=== PATIENT | male | born 1950 | race Caucasian/White ===

== ENCOUNTER 2017-09-20 13:33 | Inpatient (IN) | payer OTHER ==
[~2017-09-20] VITALS: Ht 186.7 cm; Wt 104.0 kg
[2017-09-20 14:00] VITALS: BP 168/80
[2017-09-20] MEDS ORDERED: DIPH25CA PO (14:55)
[2017-09-20] MEDS ORDERED: HEPA50VL IM (14:55)
[2017-09-20] MEDS ORDERED: ASPI81CH32 PO (14:55)
[2017-09-20] MEDS ORDERED: TYLE325C PO (14:55)
[2017-09-20] MEDS ORDERED: SENN8.6C PO (14:55)
[2017-09-20] MEDS ORDERED: KEPP1TAB PO (14:55)
[2017-09-20] MEDS ORDERED: OXYC-517 PO ×2 (14:55)
[2017-09-20] MEDS ORDERED: STOO100C PO (14:55)
[2017-09-20] MEDS ORDERED: REST0.05 OS (14:59)
[2017-09-20] MEDS: oxyCODONE 5MG TAB PO PRN ×2 (15:01→20:09)
[2017-09-20] MEDS: ACETAMINOPHEN TAB 650MG DOSE (2X325MG) PO PRN (15:01)
[2017-09-20] MEDS ORDERED: CALCIUM CARBONATE 500 MG CHEW U/D PO PRN (15:30)
--- NOTE | 2017-09-20 16:46 | PMRHPE ---
DATE OF ADMISSION: 09/20/2017 REASON FOR ADMISSION: Rehabilitation of intracerebral hemorrhage with subdural hematoma and subarachnoid hemorrhage with subdural hematoma on the left from dissection of the internal carotid artery from fall and subarachnoid hemorrhage and bifrontal, biparietal lobes from fall from 8-feet tall ladder with approximately 15 seconds of nonresponsiveness and then coming to oriented status. Patient was air lifted from the fall on 09/15/2017 to [facility], assessed, and found to have these bleeds. His main deficits, however, have remained balance and hearing, worse on the left than the right. Patient has been placed on Keppra for anti-seizure prophylaxis, 500 mg twice a day for a week. Patient was assessed in therapy and found to have been doing fairly well as far as strength goes but limited in activities of daily living (ADLs) and mobility because of the balance deficits from the bleeds here. PAST MEDICAL HISTORY: 1. Arthritis. 2. Idiopathic peripheral neuropathy, principally with bilateral foot numbness. PAST SURGICAL HISTORY: Includes: 1. Arthroscopy in 2000 to right shoulder for impingement. 2. Laparoscopic cholecystectomy in 1999. ALLERGIES: No known drug allergies. ADMISSION MEDICATIONS: - Tylenol 650 mg every 6 hours as needed for pain or fever - aspirin 81 mg daily - calcium carbonate 1 gram every 4 hours as needed for heartburn - Benadryl 25 mg every 6 hours as needed for itching - Colace 100 mg by mouth twice a day for bowel program - heparin 5000 units subcutaneous every 12 hours for deep vein thrombosis (DVT) prophylaxis - Keppra 500 mg by mouth twice a day for seizure prophylaxis. Will extend this for 3 days. - oxycodone 5 mg every 4 hours as needed moderate to severe pain - Senokot two tablets by mouth at bedtime for bowel program FAMILY HISTORY: Negative for any related diseases. SOCIAL HISTORY: Patient is a lifelong nonsmoker and did not use smokeless tobacco. He does not drink or use illicit drugs. Lives with his in 2-level home with three steps into the home and 15 steps inside. He is retired and previously was independent in mobility, ADLs, driving, and had experienced two falls inside the last year. Besides his , who is a retired nurse, who is there all the time except for a medical appointment, he has two daughters who can also assist. His does have lupus. REVIEW OF SYSTEMS: Currently with frontal headache with very mild photophobia and some nausea, for which he has requested Tums. Otherwise no pain. Except for balance, decreased hearing, patient notes essentially negative 10-system review of systems. PHYSICAL EXAMINATION: GENERAL: Patient is a tall, somewhat overweight middle-aged white male who is alert, well oriented. Has fair hearing and clear speech. He is 6 feet 1-1/2 inches tall. Weighs 104 kg. VITAL SIGNS: Show temperature 97.6, blood pressure 168/80, pulse 49, respirations 18, and pulse oximetry 96% on room air. HEENT: Normocephalic, atraumatic. No tender points or significant ecchymosis found. Pupils are equal, round, and reactive to light and accommodation. Extraocular motions are intact. Face is symmetrical without droops. Tongue is midline. Nares are clear without any drainage. No inflammation seen in the oropharynx. Hearing is slightly decreased. NECK: Supple. LUNGS: Clear in all green[place] to auscultation. CORONARY: Shows bradycardic but regular rate and rhythm with normal S1, S2 without S3, S4 murmurs or rub. ABDOMEN: Obese and nontender but normal bowel sounds in all quadrants. Bilateral upper and lower extremities with full functional range of motion. Motor is 5-/5 in bilateral upper and lower extremities. Tone is within normal limits in bilateral upper and lower extremities. Patient is alert and oriented times four. Speech is clear, coherent, and appropriate. Memory appears to be intact. Light touch, though is decreased in the distal bilateral lower extremities in a stocking pattern, as is also vibration slightly decreased down there. Otherwise, intact from mid calf proximal and throughout the upper extremities. Balance was not tested at this time. Laboratory and diagnostic data have been forwarded from [facility]. Please see sent records for additional information. ASSESSMENT AND PLAN: 1. Rehabilitation of traumatic intracerebral hemorrhage affecting the left internal carotid with some dissection, causing left-sided subdural hematoma and bilateral frontal subarachnoid hemorrhages. Patient does not seem to show any significant impulsivity or significant change in personality at this time. Further questioning with as we continue to work with patient may be helpful in that. He does have some decrease in hearing, and so I will go ahead and add speech therapy to physical and occupational therapy to work on his balance, mobility, adaptive ADLs to prepare patient for returning home with his . 2. Deafness. As noted will have speech therapy do a more thorough assessment and work with patient on any communication strategies as needed. 3. Frontal headache. This may be related to the intracerebral hemorrhage or the stress of the day with the travel up here. We will continue to observe that. Clearly, vascular is an element in this gentleman's situation, and there was questionable aneurysm present on angiograms done at [facility]. We will try to obtain all appropriate records, including imaging studies, from t here. POST ADMISSION PHYSICIAN EVALUATION: I do feel patient is consistent with preadmission screening. In general, he has an unusual presentation for fall. It does appear, though, that he did sustain a concussion, causing a brief loss of consciousness and memory and confusional state that cleared quickly; however, the bojorquez element is the intracerebral bleeds and their effect on the 8th nerve for balance and hearing. I do feel patient is quite capable of participating and benefiting from 3 hours of therapy per day, and I do anticipate he should make significant progress in adaptive mobilities, ADLs to facilitate his transition from the inpatient rehabilitation to home with family, and that his progress is good and he has a good support system. My estimated length of stay is 14 days. Medicine consult has been sent. Time spent on chart review, history and physical, documentation is greater than 70 minutes. SARAH
--- NOTE | 2017-09-20 18:17 | CR.PDOC ---
[facility] Consultation Consultation DATE OF CONSULTATION: 09/20/2017 PRIMARY CARE PHYSICIAN: Dr. Duvall / Phani REFERRING PROVIDER: Dr. Robertson ATTENDING PHYSICIAN: Dr. Robertson REASON FOR CONSULTATION/CHIEF COMPLAINT: Medical management. HISTORY OF PRESENT ILLNESS: 66 yo male with previous fall from ladder while hanging ari lights. Resulted in Head Trauma and Subarachnoid hemorrhage. Seen in [place], followed by neurosurgery. Eventually was felt to be stable from Neurosurgical and Medical stand point and accepted at [facility] for further rehabilitation.. ALLERGIES: Please see below. HOME MEDICATIONS: Please see below. PAST MEDICAL HISTORY: 1. Status post intracerebral hemorrhage/subarachnoid bleed 2. Left ear hearing loss 3. Recurrent headaches since fall, likely related to postconcussive syndrome 4. Osteoarthritis. 5. Bilateral Lower extremity Idiopathic peripheral neuropathy with unknown etiology PAST SURGICAL HISTORY: 1. Laparoscopic cholecystectomy. 2. Right shoulder arthroscopic for nerve impingement FAMILY HISTORY: Noncontributory SOCIAL HISTORY: , lives at home with his . Denies tobacco use, alcohol use, no illicit drug use. Denies any recent travel, other than recent hospitalization for acute cranial hemorrhage REVIEW OF SYSTEMS: CONSTITUTIONAL: No fever, chills, weight loss, nausea or vomiting . HEENT: Occasional headache since his fall. He does attribute having left hearing loss. Denies lightheadedness, blurred or loss of vision. No difficulty with speech or swallow. CARDIOVASCULAR: No chest pain, palpitations, paroxysmal nocturnal dyspnea or lower extremity edema RESPIRATORY: No cough, productive sputum, wheeze or hemoptysis GENITOURINARY: No dysuria, frequency, or discharge MUSCULOSKELETAL: No bone, muscle or joint pain. GASTROINTESTINAL: No Nausea, vomiting, change in appetite. Bowel movements are regular without hematochezia or melena. No bladder or bowel incontinence. SKIN: No complaint of lesions, abrasions or rashes NEUROLOGICAL: Some slowed recall with certain objects and cognition. No blurred vision, paraesthesias or paralysis PSYCHIATRIC: No depression, anxiety, audiovisual hallucinations. No suicidal ideations. ENDOCRINE: Denies history of diabetes or thyroid disorder. No history of endocrine abnormalities. HEMATOLOGIC/ONCOLOGIC: no bleeding or bruising disorders. No history of VTE. LYMPHATIC: No lumps, bumps or swelling of neck, axilla or groin. No night sweats or weight loss. PHYSICAL EXAMINATION: VITAL SIGNS: Please see below. GENERAL: NAD, A&OX3, Pleasant HEENT: PERRLA, throat clear, neck supple, no JVD CARDIOVASCULAR: RRR RESPIRATORY: CTA Bilaterally ABDOMINAL: soft, NT/ND normoactive bowel sounds EXTREMITIES: no edema/no calf tenderness NEUROLOGICAL: CN'S II-XII grossly intact PSYCHOLOGICAL: negative LABORATORY DATA: Please see below. IMPRESSION: 66 yo male who unfortunately sustained a intracranial hemorrhage from a mechanical fall, but has shown significant improvement. Recently discharged by neurosurgical care for further rehabilitation. PROBLEM LIST: 1. Status post intracerebral hemorrhage/subarachnoid bleed 2. Left ear hearing loss 3. Recurrent headaches since fall, likely related to postconcussive syndrome 4. Osteoarthritis. 5. Bilateral Lower extremity Idiopathic peripheral neuropathy with unknown etiology RECOMMENDATION: He appears stable from a medical stand point. I agree with his medications as outlined and Keppra for seizure prophylaxis as outlined by neurosurgery. No further recommendations otherwise. DVT PROPHYLAXIS: SQ heparin should be fine. DISPOSITION: per ARU physician. Thank you for this consult. Hospitalist service will be available should any issues arise with this patient. Vital Signs/I&O Vital Signs Date Time Temp Pulse Resp B/P (MAP) Pulse Ox O2 Delivery O2 Flow Rate FiO2 09/20/17 15:31 18 Room Air 09/20/17 14:00 97.6 49 168/80 (109) 96 Allergies Coded Allergies: No Known Drug Allergy (Verified Allergy, Unknown, 09/20/17) Home Medications Scheduled (Aspirin 81 Low Dose) 81 Mg Chw, 81 MG PO DAILY, (Reported) STARTED AT [facility] (Restasis) 0.05 % Emu, 1 DROP OS BID, (Reported) Docusate Sodium (Stool Softener) 100 Mg Cap, 100 MG PO BID, (Reported) Heparin Sod (Porcine) (Heparin Sodium) 5,000 Unit/Ml Inj, 1 ML IM TID, (Reported ) STARTED AT [facility] Levetiracetam (Keppra) 500 Mg Tab, 500 MG PO BID, (Reported) STARTED AT [facility] - STOP ON 09/22/2017 Senna (Senna) 8.6 Mg Cap, 2 CAP PO QPM, (Reported) Scheduled PRN (Tylenol) 325 Mg Cap, 650 MG PO Q4H PRN for PAIN, (Reported) Diphenhydramine HCl (Diphenhydramine HCl) 25 Mg Cap, 25 MG PO QHS PRN for SLEEP, (Reported) Oxycodone HCl (Oxycodone HCl) 5 Mg Tab, 5 MG PO Q4H PRN for PAIN, (Reported) STARTED AT [facility] Oxycodone HCl (Oxycodone HCl) 5 Mg Tab, 10 MG PO Q6H PRN for PAIN, (Reported) STARTED AT [facility] BRAULIO GLASER DO Sep 20, 2017 18:17
[2017-09-20 20:00] VITALS: BP 150/81
[2017-09-20] MEDS: DOCUSATE SODIUM 100 MG CAP PO SCH (20:04)
[2017-09-20] MEDS: HEPARIN SOD (PORCINE) 5000 UNITS/ML VIAL SC SCH (20:04)
[2017-09-20] MEDS: levETIRAcetam 250MG TABLET (KEPPRA) PO SCH (20:06)
[2017-09-20] MEDS: SENNA 8.6 MG TAB (SENOKOT) PO SCH (20:07)
[2017-09-21] MEDS: ACETAMINOPHEN TAB 650MG DOSE (2X325MG) PO PRN ×3 (01:45→19:34)
[2017-09-21 06:00] VITALS: BP 154/81
[2017-09-21 07:56] LABS: BASO % 0.4 % (0.0-1.0); EOS # 0.2 10^3/uL (0.0-0.50); EOS % 2.1 % (0.0-3.0); IMMATURE GRANULOCYTE % 0.4 % (0-0); LYMPH # 1.6 10^3/uL (1.5-4.5); MEAN CORPUSCULAR HEMOGLOBIN 30.6 pg (27.0-33.0); MEAN CORPUSCULAR HGB CONC 36.1 g/dl (32.0-36.5); MEAN CORPUSCULAR VOLUME 84.8 fl (80.0-96.0); MONO # 0.5 10^3/uL (0.0-0.8); MONO % 5.9 % (0.0-5.0); NEUTROPHILS # 6.1 10^3/uL (1.8-7.7); NEUTROPHILS % 72.2 % (36.0-66.0); PLATELET COUNT, AUTOMATED 164 10^3/uL (150-450); RED CELL DISTRIBUTION WIDTH 13.4 % (11.5-14.5); WHITE BLOOD COUNT 8.5 10^3/uL (4.0-10.0)
[2017-09-21 08:48] LABS: ALBUMIN 3.7 GM/DL (3.2-5.2); ALBUMIN/GLOBULIN RATIO 1.06 (1.00-1.93); ALKALINE PHOSPHATASE 68 U/L (45-117); ALT/SGPT 68 U/L (12-78); ANION GAP 9 MEQ/L (8-16); AST/SGOT 32 U/L (7-37); BILIRUBIN,TOTAL 2.1 MG/DL (0.2-1.0); BLOOD UREA NITROGEN 18 MG/DL (7-18); CALCIUM LEVEL 8.7 MG/DL (8.8-10.2); CARBON DIOXIDE LEVEL 24 MEQ/L (21-32); CHLORIDE LEVEL 106 MEQ/L (98-107); CREATININE FOR GFR 1.09 MG/DL (0.70-1.30); GLOMERULAR FILTRATION RATE > 60.0 (>49); GLUCOSE, FASTING 154 MG/DL (80-110); POTASSIUM SERUM 3.5 MEQ/L (3.5-5.1); SODIUM LEVEL 139 MEQ/L (136-145); TOTAL PROTEIN 7.2 GM/DL (6.4-8.2)
--- NOTE | 2017-09-21 08:49 | REP ---
CT Head without contrast HISTORY: Rule out bleed COMPARISON: None There is no intraparenchymal hemorrhage, acute infarct, mass or midline shift. The ventricular system is normal in appearance. Slight increased density is present in the region of the [place] . This may represent a small amount of subarachnoid hemorrhage versus down ossification of the [place]. There is no extra cerebral collection. There is no fracture. Minimal mucosal thickening is present in the left sphenoid sinus. IMPRESSION: There is slight increased density superior to the [place] This may represent non ossification of the [place] or a small amount of subarachnoid hemorrhage. MRA of the brain may be helpful for further evaluation. Results were discussed with Tawny in PM and R at 08:40 a.m. this date. Signed by Alejandro Nation MD 09/21/2017 08:40 A
[2017-09-21] MEDS: HEPARIN SOD (PORCINE) 5000 UNITS/ML VIAL SC SCH ×2 (09:00→21:00)
[2017-09-21] MEDS: ASPIRIN 81 MG CHEW TABLET PO SCH (09:00)
[2017-09-21] MEDS: levETIRAcetam 250MG TABLET (KEPPRA) PO SCH ×2 (11:35→19:33)
[2017-09-21] MEDS: DOCUSATE SODIUM 100 MG CAP PO SCH ×2 (11:35→19:33)
--- NOTE | 2017-09-21 12:56 | REP ---
MRA BRAIN WITHOUT CONTRAST: HISTORY: Rule out bleed. A small aneurysm is present arising from the cavernous left internal carotid artery. The aneurysm measures 2 x 2 mm. The aneurysm projects lateral from the cavernous left internal carotid artery. A small aneurysm is present arising from the cavernous and supraclinoid left internal carotid artery. The aneurysm measures 7 x 9 mm. The aneurysm projections posterior from the cavernous left internal carotid artery. There is no other aneurysm or arteriovenous malformation. There are no atherosclerotic lesions. The A1 segment of the right anterior cerebral artery is hypoplastic. There is origin of the right posterior cerebral artery. Major intracranial vessels are patent. The right vertebral artery is dominant. Impression: 1. 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 2. 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 Signed by Alejandro Nation MD 09/21/2017 01:12 P
--- NOTE | 2017-09-21 13:01 | IPNPDOC ---
Date Seen The patient was seen on 09/21/17. Progress Note SUBJECTIVE: Patient is a 66 yo male, seen at bedside this morning. Maybe some increased confusion related to me by the . Denies: h/a, f/c/r, n/v/d, CP, sob, cough or weakness. PHYSICAL EXAMINATION: VITAL SIGNS: Please see below. GENERAL: NAD, A&OX3, mild confusion compared to last night but pleasant HEENT: PERRLA, throat clear, neck supple, no JVD CARDIOVASCULAR: RRR RESPIRATORY: CTA Bilaterally ABDOMINAL: soft, NT/ND normoactive bowel sounds EXTREMITIES: no edema/no calf tenderness NEUROLOGICAL: CN'S II-XII grossly intact PSYCHOLOGICAL: negative LABORATORY DATA: Please see below. CT of head: pending. IMPRESSION: 66 yo male who unfortunately sustained a intracranial hemorrhage from a mechanical fall, but has shown significant improvement. Recently discharged by neurosurgical care for further rehabilitation. PROBLEM LIST: 1. Mild change in confusion. 2. Status post intracerebral hemorrhage/subarachnoid bleed 3. Left ear hearing loss 4. Recurrent headaches since fall, likely related to postconcussive syndrome 5. Osteoarthritis. 6. Bilateral Lower extremity Idiopathic peripheral neuropathy with unknown etiology RECOMMENDATION: Will plan on CT head. Hold PT for now. Will sign out to Dr. Fung to follow as consult and result of Head CT and any further w/u if needed. DVT PROPHYLAXIS: SQ heparin should be fine. DISPOSITION: per ARU physician. VS, I&O, 24H, Fishbone Vital Signs/I&O Vital Signs Date Time Temp Pulse Resp B/P (MAP) Pulse Ox O2 Delivery O2 Flow Rate FiO2 09/21/17 06:00 97.5 51 18 154/81 (105) 95 09/21/17 00:45 Room Air Laboratory Data 24H LABS Laboratory Tests 2 09/21/17 07:39: Bedside Glucose (Misc Panel) 170H 09/21/17 07:42: Immature Granulocyte % (Auto) 0.4H, White Blood Count 8.5, Red Blood Count 5.06 , Hemoglobin 15.5, Hematocrit 42.9, Mean Corpuscular Volume 84.8, Mean Corpuscular Hemoglobin 30.6, Mean Corpuscular Hemoglobin Concent 36.1, Red Cell Distribution Width 13.4, Platelet Count 164, Neutrophils (%) (Auto) 72.2H, Lymphocytes (%) (Auto) 19.0L, Monocytes (%) (Auto) 5.9H, Eosinophils (%) (Auto) 2.1, Basophils (%) (Auto) 0.4, Neutrophils # (Auto) 6.1, Lymphocytes # (Auto) 1.6, Monocytes # (Auto) 0.5, Eosinophils # (Auto) 0.2, Basophils # (Auto) 0.0, Immature Granulocyte # (Auto) 0.0, Nucleated Red Blood Cells % (auto) 0.0, Anion Gap 9, Glomerular Filtration Rate > 60.0, Blood Urea Nitrogen 18, Creatinine 1.09, Sodium Level 139, Potassium Level 3.5, Chloride Level 106, Carbon Dioxide Level 24, Calcium Level 8.7L, Aspartate Amino Transf (AST/SGOT) 32, Alanine Aminotransferase (ALT/SGPT) 68, Alkaline Phosphatase 68, Total Bilirubin 2.1H, Total Protein 7.2, Albumin 3.7, Albumin/Globulin Ratio 1.06 CBC/BMP Laboratory Tests 09/21/17 07:42 Red Blood Count 5.06, Mean Corpuscular Volume 84.8, Mean Corpuscular Hemoglobin 30.6, Mean Corpuscular Hemoglobin Concent 36.1, Red Cell Distribution Width 13.4 , Neutrophils (%) (Auto) 72.2 H, Lymphocytes (%) (Auto) 19.0 L, Monocytes (%) ( Auto) 5.9 H, Eosinophils (%) (Auto) 2.1, Basophils (%) (Auto) 0.4, Neutrophils # (Auto) 6.1, Lymphocytes # (Auto) 1.6, Monocytes # (Auto) 0.5, Eosinophils # ( Auto) 0.2, Basophils # (Auto) 0.0, Calcium Level 8.7 L, Aspartate Amino Transf ( AST/SGOT) 32, Alanine Aminotransferase (ALT/SGPT) 68, Alkaline Phosphatase 68, Total Bilirubin 2.1 H, Total Protein 7.2, Albumin 3.7 BRAULIO GLASER DO Sep 21, 2017 13:01
[2017-09-21 13:38] VITALS: BP 162/82
--- NOTE | 2017-09-21 13:48 | REP ---
MR BRAIN WITHOUT CONTRAST: HISTORY: Rule out bleed. COMPARISON: CT 09/21/2017. Small hemorrhagic contusions are present in the temporal lobes and inferior left frontal lobe. A nonhemorrhagic contusion is present in the inferior right frontal lobe. Several punctate areas of increased signal intensity on T2-weighted images are present in the subcortical white matter. This represents small vessel ischemic disease. There is no infarct or midline shift. Small chronic subdural fluid collections are present over cerebral hemispheres. These measure 3 and 2 mm on the right and left respectively. A 7 mm aneurysm is present arising from the cavernous and supraclinoid left internal carotid artery. There is a possible small 3 mm aneurysm versus a small amount of subarachnoid hemorrhage in the anterior interhemispheric fissure involving a proximal branch of the anterior cerebral arteries. The mastoid air cells and right maxillary sinus. IMPRESSION: 1. There are small hemorrhagic contusions in the inferior left frontal lobe and bilateral temporal lobes. 2. There is a small amount of hemorrhagic contusion in the inferior right frontal lobe. 3. 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 4. There are small 3 and 2 mm chronic subdural fluid collections overlying the right and left cerebral hemispheres respectively. There is no midline shift. 5. There is a possible small 3 mm aneurysm versus_ subarachnoid hemorrhage in the anterior interhemispheric fissure. Signed by Alejandro Nation MD 09/21/2017 02:22 P
[2017-09-21] MEDS: SENNA 8.6 MG TAB (SENOKOT) PO SCH (19:33)
[2017-09-21 20:00] VITALS: BP 152/82
[2017-09-21] MEDS: oxyCODONE 5MG TAB PO PRN (22:34)
[2017-09-22] MEDS: ACETAMINOPHEN TAB 650MG DOSE (2X325MG) PO PRN ×4 (01:42→21:13)
[2017-09-22] MEDS: oxyCODONE 5MG TAB PO PRN ×4 (02:57→20:07)
[2017-09-22 06:30] VITALS: BP 159/81
[2017-09-22] MEDS: ASPIRIN 81 MG CHEW TABLET PO SCH (08:52)
[2017-09-22] MEDS: DOCUSATE SODIUM 100 MG CAP PO SCH ×2 (08:52→20:06)
[2017-09-22] MEDS: levETIRAcetam 250MG TABLET (KEPPRA) PO SCH ×2 (08:53→20:06)
[2017-09-22] MEDS: HEPARIN SOD (PORCINE) 5000 UNITS/ML VIAL SC SCH ×2 (08:53→20:06)
[2017-09-22 14:00] VITALS: BP 158/85
[2017-09-22] MEDS ORDERED: amLODIPine 5 MG TAB PO ONE (15:00)
[2017-09-22 20:00] VITALS: BP 137/81
[2017-09-22] MEDS: SENNA 8.6 MG TAB (SENOKOT) PO SCH (20:06)
[2017-09-23] MEDS: oxyCODONE 5MG TAB PO PRN ×3 (00:07→19:41)
[2017-09-23] MEDS: ACETAMINOPHEN TAB 650MG DOSE (2X325MG) PO PRN ×3 (04:12→21:00)
[2017-09-23 06:00] VITALS: BP 135/76
[2017-09-23] MEDS: ASPIRIN 81 MG CHEW TABLET PO SCH (08:37)
[2017-09-23] MEDS: levETIRAcetam 250MG TABLET (KEPPRA) PO SCH (08:37)
[2017-09-23] MEDS: DOCUSATE SODIUM 100 MG CAP PO SCH ×2 (08:38→20:59)
[2017-09-23] MEDS: HEPARIN SOD (PORCINE) 5000 UNITS/ML VIAL SC SCH ×2 (08:38→21:00)
[2017-09-23] MEDS: amLODIPine 5 MG TAB PO SCH (08:38)
[2017-09-23 14:00] VITALS: BP 135/78
[2017-09-23 20:00] VITALS: BP 135/67
[2017-09-23] MEDS: diphenhydrAMINE 25 MG CAP PO PRN (20:59)
[2017-09-23] MEDS: SENNA 8.6 MG TAB (SENOKOT) PO SCH (20:59)
[2017-09-24] MEDS: oxyCODONE 5MG TAB PO PRN ×3 (03:39→21:33)
[2017-09-24] MEDS: ACETAMINOPHEN TAB 650MG DOSE (2X325MG) PO PRN ×3 (03:40→21:32)
[2017-09-24 06:00] VITALS: BP 139/84
[2017-09-24] MEDS: DOCUSATE SODIUM 100 MG CAP PO SCH ×2 (08:49→21:34)
[2017-09-24] MEDS: amLODIPine 5 MG TAB PO SCH (08:49)
[2017-09-24] MEDS: ASPIRIN 81 MG CHEW TABLET PO SCH (08:49)
[2017-09-24] MEDS: HEPARIN SOD (PORCINE) 5000 UNITS/ML VIAL SC SCH (08:49)
[2017-09-24] MEDS: ANALGESIC BALM CRM 120 GM TOP SCH ×3 (13:30→21:36)
[2017-09-24 14:30] VITALS: BP 147/85
--- NOTE | 2017-09-24 17:45 | IPNPDOC ---
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 Patient was air lifted from the fall on 09/15/2017 to [facility], assessed, and found to have these bleeds. His main deficits, however, have remained balance and hearing, worse on the left than the right. Patient was assessed in therapy and found to have been doing fairly well as far as strength goes but limited in activities of daily living (ADLs) and mobility because of the balance deficits from the bleeds here. Patient has completed his course of Keppra with no seizures noted. He did have some decrease in attention concentration on 09/21/17 in the morning which led to the CT and MRI exams that day. Patient then showed clearing from the confusion and lethargy that his had noted that morning. Patient notes having frontal headache otherwise significant complaints today. ALLERGIES: See Below MEDICATIONS: Reviewed, see below. OBJECTIVE: VITAL SIGNS: Please see below. PHYSICAL EXAMINATION: GENERAL: Tall somewhat over weight late middle-age white male who looks slightly younger than a 66 years of age. Patient is alert and well oriented with speech that is clear and appropriate. HEENT: Normocephalic/atraumatic with some tender points in the temporalis muscles bilaterally and in the frontalis on the left. CARDIOVASCULAR: Regular rate and rhythm with normal S1-S2 without S3-S4 murmurs or rubs. 2/4 bilateral radial pulses. LUNGS: All green[place] clear to auscultation. ABDOMEN: Benign with normal bowel sounds in all quadrants. NEUROLOGICAL: Patient is alert and oriented to person, place, time and situation. Affect is pleasant and cooperative which is a little bit of anxiousness. Good strength in bilateral upper and lower extremities. SKIN: Grossly intact. LABORATORY DATA: Reviewed. Please see below. MICROBIOLOGY: Please see below. IMAGING: EXAMINATION REQUESTED: CT Head without contrast REASON FOR PATIENT VISIT: SAH REASON FOR EXAM/COMMENT: Evaluate for bleed CT Head without contrast HISTORY: Rule out bleed COMPARISON: None There is no intraparenchymal hemorrhage, acute infarct, mass or midline shift. The ventricular system is normal in appearance. Slight increased density is present in the region of the [place] . This may represent a small amount of subarachnoid hemorrhage versus down ossification of the [place]. There is no extra cerebral collection. There is no fracture. Minimal mucosal thickening is present in the left sphenoid sinus. IMPRESSION: There is slight increased density superior to the [place] This may represent non ossification of the [place] or a small amount of subarachnoid hemorrhage. MRA of the brain may be helpful for further evaluation. Results were discussed with Tawny in PM and R at 08:40 a.m. this date. Signed by Kimberly Nation MD 09/21/2017 08:40 A DD: Kimberly Nation MD 09/21/17 0821 DT: Moriah 09/21/17 0840 DS: SARANYA 09/21/17 0840 09/21/17 0840 EXAMINATION REQUESTED: MRA BRAIN W/O CONTRAST REASON FOR PATIENT VISIT: SAH REASON FOR EXAM/COMMENT: elavuate for bleed MRA BRAIN WITHOUT CONTRAST: HISTORY: Rule out bleed. A small aneurysm is present arising from the cavernous left internal carotid artery. The aneurysm measures 2 x 2 mm. The aneurysm projects lateral from the cavernous left internal carotid artery. A small aneurysm is present arising from the cavernous and supraclinoid left internal carotid artery. The aneurysm measures 7 x 9 mm. The aneurysm projections posterior from the cavernous left internal carotid artery. There is no other aneurysm or arteriovenous malformation. There are no atherosclerotic lesions. The A1 segment of the right anterior cerebral artery is hypoplastic. There is origin of the right posterior cerebral artery. Major intracranial vessels are patent. The right vertebral artery is dominant. Impression: 1. 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 2. 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 Signed by Kimberly Nation MD 09/21/2017 01:12 P DD: Kimberly Nation MD 09/21/17 1232 DT: ADELINA 09/21/17 1256 DS: SARANYA 09/21/17 1312 09/21/17 1312 EXAMINATION REQUESTED: MRI-Brain without Contrast REASON FOR PATIENT VISIT: SAH REASON FOR EXAM/COMMENT: Evaluate for new bleed MR BRAIN WITHOUT CONTRAST: HISTORY: Rule out bleed. COMPARISON: CT 09/21/2017. Small hemorrhagic contusions are present in the temporal lobes and inferior left frontal lobe. A nonhemorrhagic contusion is present in the inferior right frontal lobe. Several punctate areas of increased signal intensity on T2-weighted images are present in the subcortical white matter. This represents small vessel ischemic disease. There is no infarct or midline shift. Small chronic subdural fluid collections are present over cerebral hemispheres. These measure 3 and 2 mm on the right and left respectively. A 7 mm aneurysm is present arising from the cavernous and supraclinoid left internal carotid artery. There is a possible small 3 mm aneurysm versus a small amount of subarachnoid hemorrhage in the anterior interhemispheric fissure involving a proximal branch of the anterior cerebral arteries. The mastoid air cells and right maxillary sinus. IMPRESSION: 1. There are small hemorrhagic contusions in the inferior left frontal lobe and bilateral temporal lobes. 2. There is a small amount of hemorrhagic contusion in the inferior right frontal lobe. 3. 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 4. There are small 3 and 2 mm chronic subdural fluid collections overlying the right and left cerebral hemispheres respectively. There is no midline shift. 5. There is a possible small 3 mm aneurysm versus_ subarachnoid hemorrhage in the anterior interhemispheric fissure. Signed by Kimberly Nation MD 09/21/2017 02:22 P DD: Kimberly Nation MD 09/21/17 1243 DT: SHENG 09/21/17 1347 DS: SARANYA 09/21/17 1422 09/21/17 1422 DVT prophylaxis ordered?: Aspirin. In light of the amount of walking patient is currently able to do and the nature of his multiple intercerebral hemorrhages, I will discontinue the heparin 5000 units subcutaneous every 12 hours. ASSESSMENT AND PLAN: 1. Rehabilitation of intercerebral hemorrhage with bilateral inferior frontal lobe contusions and bilateral temporal lobe contusions and left internal carotid artery aneurysm: Patient is doing exceptionally well in physical therapy , occupational therapy and has been evaluated by speech-language pathology. His strength and endurance are good but the bojorquez thing at this time is balance and coordination that limit him from being able be independent at home. Patient to be reviewed in team rounds today. 2. Deafness: Patient seems to be adapting adjusting fairly well to this. At discharge he will follow-up with ENT and should be directed to audiology. 3. Elevated fasting blood sugar this morning: Patient with blood sugar of 154 this morning but no diabetes history. I will have patient recheck with some fingerstick glucose measurements and check a hemoglobin A1c. REHAB. TEAM ROUNDS: Patient reviewed today in team rounds with is a co-therapy, occupational therapy, rehabilitation nursing, rehabilitation case management and physiatry. Overall patient is doing very well making rapid progress in learning adaptive mobility and ADLs in spite of his hearing and balance deficits. Anticipated date of discharge is 09/27/17. Please see initial assessments below. TIME SPENT: Chart Review, examination and documentation require greater than 25 minutes. Patient: Stef Mora : 1950 Age/Sex: 66/M Unit#: [id number] Room/Bed: M4148/01 User: Lorie Henriquez OT OT Date: 09/22/17 10:37 Type: OT Evaluation Time In * 06:50 Time Out * 07:50 OT Treatment Time-Minutes * 60 mins Type of Therapy Provided * Individual Unit * Acute Inpatient Rehab Occupational Therapy Evaluation * Initial Diagnosis * L ICA dissection, SDH/SAH Doctor's Order * Evaluation & Treatment Doctor's Order Details * Eval and treat 1.5 hours per day. 5 days per week. History of Present Illness * Pt reports he was assisting his grandson putting up ari lights on his house, and fell off a ladder. Pt reports he has no memory of the accident, but was taken to [facility] for further evaluation. Pt found to have L ICA dissection, SDH/SAH. Pt [facility] to [facility] 09/20/17. Precautions * Fall Subjective * Pt supine upon OT arrival, agreeable to evaluation. Prior to admission Pt was Independent ADL's * Yes Prior to Admission Other Assist Pt Required * Pt reports he was independent with all ADL/IADL at baseline, using no AD. Pain: Start of Session * 5 Pain: During Session * 5 Pain Assessment Label * Anterior Head * Pain Note Pt c/o headache that has been ongoing since admission. Pt did receive medication during tx from RN. Upper Extremity Dominance * Right Range of Motion Assessment Label * Bilateral Shoulder Elbow Wrist Fingers * Active or Passive Active * ROM Within Normal Limits Within Normal Limits Muscle Tone Assessment Label * Bilateral Shoulder Elbow Wrist Fingers * Upper Extremity Status Tone/Synergy Within Normal Limits Strength Assessment Label * Bilateral * Upper Extremity Strength Location Shoulder Elbow Wrist Air And Water Filler * Upper Extremity Status Strength 4+/5 Movement Assessment Label * Bilateral * Upper Extremity Status Gross Motor Within Normal Limits Upper Body Muscle Tone Label * Bilateral * Upper Extremity Status Fine Motor Within Normal Limits Sensation Assessment Label * Bilateral * Upper Extremity Status Sensation Within Normal Limits Edema Present * No Eating (Feeding) * Independent Grooming (Hygiene) * Standby Assist Bathing * Contact Guard Assist Dressing-Upper Body * Standby Assist Dressing-Lower Body * Contact Guard Assist Toileting * Contact Guard Assist Toilet/Commode Transfer * Contact Guard Assist Transfers * Contact Guard Assist Bed Mobility * Standby Assist Walk/Device * Contact Guard Assist ADL Status Note * Pt transferred supine to sit EOB with use of bedrail and SBA. Pt able to don B slippers while seated EOB, then completed sit<>stand with CGA to RW. Pt ambulated to bathroom and completed toilet transfer with CGA. Toileting with CGA in standing for clothing management. Pt transferred to sink and completed sponge bathing while seated on shower chair. Pt able to wash all parts, with SBA/CGA in standing to wash buttocks. UB dressing- set-up assist only. LB dressing- pt able to thread BLE into pants and socks, close SBA/CGA to stand to pull up. Pt completed grooming at sink with set-up assist only. Pt then ambulated back to chair at bedside, awaiting breakfast and ST. All needs met, call light in reach. Per ST, pt able to open all items on tray and feed self independently. A. Eating (include only those with PO intake): * 06.Independent Eating Comments: * See ADL note. B. Oral Hygiene (includes gums in edentulous pts): * 05.Setup/clean up Asst Oral Hygiene Comments: * See ADL note. C. Toileting Hygiene (not transfers): * 04.Sup/Touch Assist Toileting Hygiene Comments: * See ADL note. E. Shower/Bathe Self (not transfers, can be sponge bath): * 04.Sup/Touch Assist Shower/Bathe Self Comments: * See ADL note. F. Upper Body Dressing (includes bra, not hospital gown): * 05.Setup/clean up Asst Upper Body Dressing Comments: * See ADL note. G. Lower Body Dressing (includes briefs and knee braces): * 04.Sup/Touch Assist Lower Body Dressing Comments: * See ADL note. H. Putting on/taking off footwear (includes TEDS and AFO): * 04.Sup/Touch Assist Putting on/taking off footwear Comments: * See ADL note. Sitting: Static * G Sitting: Dynamic * G Standing: Static * F+ Standing: Dynamic * F+ Functional Endurance * Good Living Quarters * House Number of Steps Inside Home * 14 Number of Steps Outside Home * 3 Home Has * Shower * Curtain Living Situation * Spouse Other Home Accessibility Comments * Pt does have 3 steps to enter and has 1st floor set-up, as bedroom and bathroom are on 1st floor. Pt does ascend/descend stairs regularly thoughout the day, as his office is upstairs, though he doesn't have to until he is physically ready. Visual Acuity * Intact Hearing * Impaired Proprioceptive/Kinesthesia * Intact Praxis * Intact Orientation * Intact Memory * Intact Attention * Intact Follows Commands * Intact Safety Awareness * Intact Problem Solving * Intact Behavior/Affect * Intact Motivation * Intact Family/Support * Intact Perception/Cognition/Psychosocial Comment * Pt A&Ox3, polite and cooperative throughout eval. Pt indicates significant hearing loss in L ear following accident, though states his hearing in his R ear is getting better. Home Safety Status * Safe-Previous Situation Discharge Recommendations * Home w/services Occupational Therapy Evaluation Notes * Pt demonstrates decreased independence from baseline due to recent fall. Pt will benefit from skilled OT to maximze independence with ADL, functional transfers, and safety awareness for safe d/c home with his spouse. OT Recommendations * OOB all meals, encourage participation in all ADL. See Acute In-Patient Rehab POC * Yes OT Interventions * Functional Training * Safety/Precautions * D/C Needs * HEP * ADL Training * Bed Mobility * Therapeutic Exercise * Balance Activities * Pt/Family Education Patient Education Completed * Yes Patient: Stef Mora : 1950 Age/Sex: 66/M Unit#: [id number] Room/Bed: M4148/01 User: Mireille Reeves [facility] Rehab PT Date: 09/22/17 11:55 Type: PT Evaluation Time In * 11:45 Time Out * 12:38 PT Treatment Time-Minutes * 53 mins Type of Therapy Provided * Individual Diagnosis * subarachnoid hemorrhage Doctor's Order * Evaluation & Treatment History of Present Illness * Pt fell off 8' ladder Current symptom is headache Subjective * Pt resting supine in bed with and grandson prsent. Per pt he is agreeable to and grandson present for evaluation. Pt explains history of present illness, while at [facility] he was diagnosed with subarachnoid hemorrhage. 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 Precautions * Fall Unit * Acute Inpatient Rehab Prior to Admission Pt Independent with Gait * Yes Prior to Admission Patient Lives * With Significant Other Prior to Admission Pt Lives with Comment * , 2 daughters live near by Prior to Admission Other Assist Pt Requires * Pt (I) with all ADLs and IADLs Pain Comment * pt recently medicated for headache, rates 2/10 head pain Pain Assessment Label * Anterior Head * Description Throbbing * Pain Note Pt c/o headache that has been ongoing since admission. Pt did receive medication prior to PT eval Upper Extremity ROM Label * Bilateral Shoulder Elbow Wrist * ROM Within Normal Limits Within Funct. Limits * Upper Extremity ROM Comment defer to OT eval Lower Extremity ROM Label * Bilateral Hip Knee Ankle * Active or Passive Active * ROM Within Normal Limits Within Functional Limits Tone * No Tone Within Normal Limits * Yes Upper Extremity Strength Label * Bilateral * Upper Extremity Status Strength Location Shoulder Elbow Wrist * Upper Extremity Strength Comment refer to OT eval Lower Extremity Strength Label * Bilateral Hip Knee Ankle * Lower Extremity Status Strength 5/5 Sensation Assessment Label * Bilateral * Sensation Status Impaired * Other Sensation bilateral toes "numb" Bathing * Not Tested Dressing * Not Tested Toileting * Not Tested Transfer: Supine to Sit * Standby Assist Transfer: Sit to Supine * Standby Assist Transfer: Rolling * Not Tested Transfer: Sit to Stand * Standby Assist Transfer: Stand to Sit * Standby Assist Transfer: Bed to Chair * Standby Assist Transfer: Chair to Bed * Standby Assist Transfer: Toilet/Commode * Standby Assist Ambulation Distance * 200 Feet Ambulation Level of Assist * Contact Guard Assist Assistive Device Used * None * Gait Belt Gait Deviations * mild LOB that is self-corrected Stair Skills Required * Yes Number of Stairs Completed * 4 Stairs Railing * Yes Railing Side * Right & Left Level of Assist for Stairs * Contact Guard Assist A. Roll Left and Right: * 88.Not Attempted B. Sit to Lying: * 04.Sup/Touch Assist C. Lying to Sitting on Side of Bed: * 04.Sup/Touch Assist D. Sit to Stand: * 04.Sup/Touch Assist E. Chair/[id number] Transfer: * 04.Sup/Touch Assist F. Toilet Transfer: * 04.Sup/Touch Assist G. Car Transfer: * 88.Not Attempted H. Does the patient walk?: * 2. Yes I. Walk 10 Feet: * 04.Sup/Touch Assist J. Walk 50' with Two Turns: * 04.Sup/Touch Assist K. Walk 150 Feet: * 04.Sup/Touch Assist L. Walking 10' on uneven surfaces: * 88.Not Attempted M. 1 Step (curb): * 88.Not Attempted N. 4 Steps (with or without railing): * 04.Sup/Touch Assist O. 12 Steps (with or without railing): * 88.Not Attempted P. Picking up Object from the Floor (from a standing): * 88.Not Attempted Q. Does the patient use a w/c (other than just transport): * 0. No Sitting: Static * G Sitting: Dynamic * G Standing: Static * F+ Standing: Dynamic * F+ Functional Balance Comment * sitting balance at EOB, standing without AD and during toilet transfer Living Quarters * House Number of Steps Inside Home * 12 Railing: Inside Steps * Right Number of Steps Outside Home * 3 Railing: Outside Steps * Left Ramp: Outside * No Equipment at Home * Cane * Scooter Other Equipment at Home * Scooter and cane belong to Equipment Needs for Home * Walker * Grab Bars Other Home Accessibility Comments * master bed and bath on first story, per pt's will need to ascend/descend stairs to basement Hearing * Impaired Right/Left Neglect * Intact Proprioceptive/Kinesthesia * Intact Praxis * Intact Orientation * Person * Place * Date Memory * Intact Follows Commands * Intact Safety Awareness * Intact Family Support * Intact Family Needs Identified * DME Training Perception/Cognition/Psychosocial Comment * hearing loss in L ear Coordination * Within Normal Limits Home Safety Status * Not Safe Patient Not Safe for Discharge Due to * Pt will need to ascend and descend full flight of stairs (I)'ly and ambulate at least 1000 ft (I)'ly without an AD as this was his status [employer]. Discharge Recommendations * Home w/services Physical Therapy Evaluation Note * Pt motivated to return home and work toward [facility] [facility]. Pt not safe for discharge due to decreased safety with functional mobility. He will greatly benefit from skilled physical therapy intervention to optimize safety and overall quality of life. PT Recommendations * 7x/week; 2x/daily Skilled interventions should include neuromuscular re-ed/balance training, gait training, stair training, pt and family education re: discharge needs See Acute In-Patient Rehab POC * Yes Number times per day to be seen * 2 Number of times per week to be seen * 7 Number of weeks to achieve goals * 2 PT Goal Expiration Date * Oct 06, 2017 PT Interventions * Gait Training * Therapeutic Excercise * Functional Training * Bed Mobility * Balance Activities * Safety/Precautions * HEP * Pt./Family Education * D/C Needs * Neuro Re-Education Patient Education Completed * Yes Patient: Stef Mora : 1950 Age/Sex: 66/M Unit#: [id number] Room/Bed: M4148/01 User: ALEXANDER Chavez SP Date: 09/22/17 08:54 Type: ST: Adult Language Evaluation Evaluation Components * Chart Review * Patient Interview * Other Interview * Non-Standard Testing * CLQT Patient Characteristics * Cooperative * Alert * Oriented * Motivated Patient Characteristics Comment * Significantly imapired hearing Visual Acuity * Glasses Hearing * Impaired Fluency * Adequate Listening Comprehension * Within Functional Limits Verbal Expression * Within Normal Limits Reading Comprehension * Phrases * Sentences Social Language Skills * Appropriate Eye Contact * Takes Turns * Maintains Topics * Adequate Listening Deficit * Within Functional Limits Speaking Deficit * Within Functional Limits Reading Deficit * Within Functional Limits Recommendations * No Further Follow Up Recommendations Comment * Speak clearly/loudly when addressing Pt. Patient: Stef Mora : 1950 Age/Sex: 66/M Unit#: [id number] Room/Bed: M4148/01 User: ALEXANDER Chavez Ssv SP Date: 09/22/17 08:51 Type: ST: Clinical Swallowing Evalua... Other History * No report of difficulty swallowing. Decreased appetitie Verbal expression * Adequate Able to follow commands * Adequate Cognition * Functional Positioning * Standard Chair(Supported) Nutrition/Intake method * Total Oral Feeding status * Independent Current diet * Regular * Thin liquid Oral Structures * Adequate Face and lip function * WFL Tongue function * Adequate Laryngeal function * Adequate Speech Clarity * WFL Thin Liquids - Oral stage difficulties * None Thin Liquids - Pharyngeal stage difficulties * None Suspected Thin Liquids - Severity of impairment * Adequate Solids - Oral stage difficulties * None Solids - Severity * WFL Aspiration Risk * Swallow is Adequate * No Visible S/S Aspiration Recommended Diet * Regular Diet Recommended Liquids * Regular/Thin Liquid Recommended positioning * Upright in chair, as able Recommended Oral Care * Three Times per Day Recommend Modified BA Swallow/ Cookie Swallow * No Recommend Dysphagia Therapy * No Speech Therapy CPT Code * 85886 Clin Swallow Eval Patient: Stef Mora : 1950 Age/Sex: 66/M Unit#: [id number] Room/Bed: [place] [address] User: ALEXANDER Chavez Ssv SP Date: 09/22/17 09:07 Type: ST: Cognitive Linguistic Eval [place] * Yes Active Duty * No Developemental Delay * No Location of Evaluation * Bedside Cognitive Communication Evaluation Components * Chart Review * Non-Standard Testing * CLQT Evaluation Comment * Evaluation was discontinued early d/t increased fatigue and headache. Language Testing Completed * Yes Oral Motor/Speech Skills WFL * Yes Hearing WFL * Significantly impaired hearing Clinical Observations * Oriented * Alert * Cooperative * Socially Appropriate Cognitive-Communication: Other Clinical Observations * Increased response time required as headache increased Behavioral Observation Comment * Non observed Patient Orientation * Person * Place * Age * Birthday * Day of Month * Day of Week * Month * Year * Time of Day * Adequate Pragmatics * WFL Memory * WFL Cognitive-Communication Memory Comment * Pt independently utilizes memory strategies prior to hospitalization Organization * WFL Reasoning * WFL Executive Function * WFL Cognitive-Communication Executive Function Comment * Severity of Cognitive-Communication Deficit * WFL Recommendations * No Further Follow Up Recommendations Comment * Pt does not required cognitive tx at this time. Please re-consult with changes in mental status/cognition. Unable to obtain formal score from CLQT as testing was discontinued d/t level of pain and fatigue. Observed increased difficulty w/ divided attention and mental flexibility as testing progressed likely d/t level of pain and fatigue increase. After Evaluation/Treatment Report Provided to: * RN and Perla SUTTON Allergies Coded Allergies: No Known Drug Allergy (Verified Allergy, Unknown, 09/20/17) Vital Signs Vital Signs Date Time Temp Pulse Resp B/P (MAP) Pulse Ox O2 Delivery O2 Flow Rate FiO2 09/24/17 14:30 97.3 71 18 147/85 99 Room Air Current Medications Current Medications Current Medications Acetaminophen (Tylenol Tab) 650 mg Q6HP PRN PO PAIN OR FEVER Last administered on 09/24/17 13:31; Start 09/20/17 at 14:15; Stop 10/20/17 at 14:14 Amlodipine Besylate (Norvasc) 5 mg DAILY PO Last administered on 09/24/17 08: 49; Start 09/23/17 at 09:00; Stop 10/23/17 at 08:59 Aspirin (Aspirin Chewable) 81 mg DAILY PO Last administered on 09/24/17 08:49 ; Start 09/21/17 at 09:00; Stop 10/21/17 at 08:59 Calcium Carbonate (Tums) 1,000 mg Q4HP PRN PO HEARTBURN Last administered on 20:59; Start 09/20/17 at 15:30; Stop 10/20/17 at 15:29 Diphenhydramine HCl (Benadryl) 25 mg Q6HP PRN PO ITCHING Last administered on 09/23/17 20:59; Start 12/7/17 at 14:15; Stop 10/20/17 at 14:14 Docusate Sodium (Colace) 100 mg BID PO Last administered on 09/24/17 08:49; Start 09/20/17 at 21:00; Stop 10/20/17 at 20:59 Heparin Sodium (Porcine) (Heparin) 5,000 units Q12H SC Last administered on 08:49; Start 09/20/17 at 21:00; Stop 09/24/17 at 10:48; Status DC Home Med (Med Rec Complete!) ASDIRECTED XX ; Start 09/20/17 at 15:00; Stop 09/20/17 at 15:04; Status DC Levetiracetam (Keppra) 500 mg BID PO Last administered on 09/23/17 08:37; Start 09/20/17 at 21:00; Stop 09/23/17 at 20:59; Status DC Menthol/Methyl Salicylate (Bengay Cream) to bilateral temp... QID TOP Last administered on 09/24/17 13:30; Start 09/24/17 at 13:00; Stop 09/28/17 at 23 :55 Oxycodone HCl (Roxicodone, Oxyir) 5 mg Q4HP PRN PO PAIN SCALE 6-10 Last administered on 09/24/17 13:31; Start 09/20/17 at 14:15; Stop 09/27/17 at 14: 14 Senna (Senokot) 2 tab QHS PO Last administered on 09/23/17 20:59; Start 09/20 at 21:00; Stop 10/20/17 at 20:59 KIMBERLY MELENDEZ MD Sep 24, 2017 17:44
[2017-09-24 20:00] VITALS: BP 118/57
[2017-09-24] MEDS: diphenhydrAMINE 25 MG CAP PO PRN (21:31)
[2017-09-24] MEDS: SENNA 8.6 MG TAB (SENOKOT) PO SCH (21:34)
[2017-09-25] MEDS: ACETAMINOPHEN TAB 650MG DOSE (2X325MG) PO PRN ×3 (05:28→20:52)
[2017-09-25 05:41] VITALS: BP 133/85
[2017-09-25] MEDS: amLODIPine 5 MG TAB PO SCH (08:23)
[2017-09-25] MEDS: ASPIRIN 81 MG CHEW TABLET PO SCH (08:23)
[2017-09-25] MEDS: DOCUSATE SODIUM 100 MG CAP PO SCH ×2 (08:23→20:52)
[2017-09-25] MEDS: ANALGESIC BALM CRM 120 GM TOP SCH ×4 (08:24→20:54)
[2017-09-25] MEDS: oxyCODONE 5MG TAB PO PRN ×2 (13:10→20:53)
[2017-09-25 14:50] VITALS: BP 145/76
--- NOTE | 2017-09-25 15:56 | IPNPDOC ---
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 Patient was air lifted from the fall on 09/15/2017 to [facility], assessed, and found to have these bleeds. His main deficits, however, have remained balance and hearing, worse on the left than the right. Patient was assessed in therapy and found to have been doing fairly well as far as strength goes but limited in activities of daily living (ADLs) and mobility because of the balance deficits from the bleeds here. Patient has completed his course of Keppra with no seizures noted. He did have some decrease in attention concentration on 09/21/17 in the morning which led to the CT and MRI exams that day. Patient then showed clearing from the confusion and lethargy that his had noted that morning. Patient notes having frontal headache otherwise significant complaints today. ALLERGIES: See Below MEDICATIONS: Reviewed, see below. OBJECTIVE: VITAL SIGNS: Please see below. PHYSICAL EXAMINATION: GENERAL: Tall somewhat over weight late middle-age white male who looks slightly younger than a 66 years of age. Patient is alert and well oriented with speech that is clear and appropriate. HEENT: Normocephalic/atraumatic with some tender points in the temporalis muscles bilaterally and in the frontalis on the left. CARDIOVASCULAR: Regular rate and rhythm with normal S1-S2 without S3-S4 murmurs or rubs. 2/4 bilateral radial pulses. LUNGS: All greenwood clear to auscultation. ABDOMEN: Benign with normal bowel sounds in all quadrants. NEUROLOGICAL: Patient is alert and oriented to person, place, time and situation. Affect is pleasant and cooperative which is a little bit of anxiousness. Good strength in bilateral upper and lower extremities. SKIN: Grossly intact. LABORATORY DATA: Reviewed. Please see below. MICROBIOLOGY: Please see below. IMAGING: No new imaging today. DVT prophylaxis ordered?: Aspirin. In light of the amount of walking patient is currently able to do and the nature of his multiple intercerebral hemorrhages, I have discontinued the heparin 5000 units subcutaneous every 12 hours. ASSESSMENT AND PLAN: 1. Rehabilitation of intercerebral hemorrhage with bilateral inferior frontal lobe contusions and bilateral temporal lobe contusions and left internal carotid artery aneurysm: Patient is doing exceptionally well in physical therapy , occupational therapy and has been evaluated by speech-language pathology. His strength and endurance are good but the bojorquez thing at this time is balance and coordination that limit him from being able be independent at home. Overall patient is doing very well making rapid progress in learning adaptive mobility and ADLs in spite of his hearing and balance deficits. Anticipated date of discharge is 09/27/17. Please see initial assessments below. 2. Deafness: Patient seems to be adapting adjusting fairly well to this. At discharge he will follow-up with ENT and should be directed to audiology. 3. Elevated fasting blood sugar this morning: Patient with blood sugar of 112 this morning but no diabetes history and HgbA1c of 5.1. If FBS remains low, I will stop fingerstick BS checks. TIME SPENT: Chart Review, examination and documentation require greater than 25 minutes. Patient: Stef Mora : 1950 Age/Sex: 66/M Unit#: [id number] Room/Bed: M4148/01 User: Lorie Henriquez OT OT Date: 09/25/17 12:41 Type: OT Progress Time In * 07:00 Time Out * 07:30 OT Treatment Time-Minutes * 30 mins Type of Therapy Provided * Individual Precautions * Fall Unit * Acute Inpatient Rehab Pain Start of Session * 0 Pain End of Session * 0 Pain Comment * No c/o pain Subjective * Pt supine upon OT arrival, agreeable to tx. Cognition * Within Normal Limits Cognition Comments * WNL Supine to Sit * Modified Independant Sit to Supine * Modified Independent Rolling * Not Tested Bed Mobility Notes * Mod I with HOB slightly elevated. Sit to Stand * Modified Independent Stand to Sit * Modified Independent Bed to Chair * Modified Independent Chair to Bed * Modified Independent Toilet/Commode * Modified Independent Shower/Tub * Modified Independent Functional Transfer Notes: * All functional transfers completed with mod I this date using RW. Bathing * Modified Independent Dressing-Upper Body * Independent Dressing-Lower Body * Modified Independent Grooming * Modified Independent Toileting * Modified Independent Eating * Independent ADL Training Note * Pt ambulated in room to gather clothing, then to bathroom and completed shower transfer with mod I. Pt completed bathing while seated on shower chair with mod I. UB dressing- independently. LB dressing- pt able to thread BLE into pants and B socks mod I. Pt then ambulated to sink and completed grooming independently while standing. A. Eating (include only those with PO intake): * 06.Independent Eating Comments: * See ADL note. B. Oral Hygiene (includes gums in edentulous pts): * 06.Independent Oral Hygiene Comments: * See ADL note. C. Toileting Hygiene (not transfers): * 06.Independent Toileting Hygiene Comments: * See ADL note. E. Shower/Bathe Self (not transfers, can be sponge bath): * 06.Independent Shower/Bathe Self Comments: * See ADL note F. Upper Body Dressing (includes bra, not hospital gown): * 06.Independent Upper Body Dressing Comments: * See ADL note. G. Lower Body Dressing (includes briefs and knee braces): * 06.Independent Lower Body Dressing Comments: * See ADL note H. Putting on/taking off footwear (includes TEDS and AFO): * 06.Independent Putting on/taking off footwear Comments: * See ADL note. Sit-Static * G Sit-Dynamic * G Stand-Static * G Stand-Dynamic * G Balance Training Note * balance oberserved during ambulation with RW OT Intervention Note * See ADL note above. Following ADLs, pt returned to chair at bedside to complete breakfast. All needs met. Call light in reach. OT Goal Note * Continue with OT plan of care. Discharge Recommendations * Home w/services Safe for discharge at this time * Yes Patient: Stef Mora : 1950 Age/Sex: 66/M Unit#: [id number] Room/Bed: M4148/01 User: Lorie Henriquez OT OT Date: 09/25/17 12:49 Type: OT Progress Time In * 07:40 Time Out * 08:10 OT Treatment Time-Minutes * 30 mins Type of Therapy Provided * Individual Precautions * Fall Unit * Acute Inpatient Rehab Pain Comment * No c/o pain Subjective * Pt just completed breakfast, all needs met. Cognition * Within Normal Limits Sit to Stand * Modified Independent Stand to Sit * Modified Independent Functional Transfer Notes: * Pt completed sit<>stand with mod I. Pt ambulated to/from gym using RW with mod I. Sit-Static * G Sit-Dynamic * G Stand-Static * G Stand-Dynamic * G OT Intervention Note * Pt ambulated to gym using RW with mod I. Pt completed BUE ergometer x12:00 with moderate resistance to increase strength and endurance for ADL routines. Pt then returned to room using RW with mod I. Pt returned to EOB>supine independently. All needs met, call light in reach. Discharge Recommendations * Home w/services Safe for discharge at this time * Yes Patient: Stef Mora : 1950 Age/Sex: 66/M Unit#: [id number] Room/Bed: M4148/01 User: Brielle Leigh PT PT Date: 09/24/17 16:29 Type: PT Progress Note Time In * 14:45 Time Out * 15:15 PT Treatment Time-Minutes * 30 mins Type of Therapy Provided * Individual Precautions * Fall Unit * Medical/Surgical Floor Pain Comment * pt notes that he had pain medication prior to OT and was experiencing some relief from headache at this time. Subjective * Pt was in good spirits and was willing to participate in manual therapy at the posterior neck, and upper tricepts. This treatment was approved by MD. Melendez prior to completion. Cognition * Within Normal Limits Cognition Comments * no significant cognitive deficits observed Supine to Sit * Not Tested Sit to Supine * Modified Independent Rolling * Not Tested Bed Mobility Notes * HOB raised Sit to Stand * Modified Independent Stand to Sit * Modified Independent Bed to Chair * Not Tested Chair to Bed * Modified Independent Toilet/Commode * Not Tested Transfer Training Notes * mod I with transfers using RW. pt is SBA to CGA with cane use. Sit-Static * G Sit-Dynamic * G Stand-Static * G Stand-Dynamic * G Balance Training Note * completed with cane today Ambulation Distance * 10 Feet Ambulation Level of Assist * Modified Independent Assistive Device Used * Cane * Gait Belt Gait Training Note * pt completing transfers form chair to bed with cane ambulating 10 ft. pt completing with minor list when turning. A. Roll Left and Right: * 06.Independent B. Sit to Lying: * 06.Independent C. Lying to Sitting on Side of Bed: * 88.Not Attempted D. Sit to Stand: * 06.Independent E. Chair/[id number] Transfer: * 06.Independent F. Toilet Transfer: * 88.Not Attempted G. Car Transfer: * 88.Not Attempted H. Does the patient walk?: * 2. Yes I. Walk 10 Feet: * 06.Independent J. Walk 50' with Two Turns: * 88.Not Attempted K. Walk 150 Feet: * 88.Not Attempted L. Walking 10' on uneven surfaces: * 88.Not Attempted M. 1 Step (curb): * 88.Not Attempted N. 4 Steps (with or without railing): * 88.Not Attempted O. 12 Steps (with or without railing): * 88.Not Attempted P. Picking up Object from the Floor (from a standing): * 88.Not Attempted Q. Does the patient use a w/c (other than just transport): * 0. No R. Wheel 50' with 2 Turns(seated in w/c): * 88.Not Attempted S. Wheel 150' (seated in w/c): * 88.Not Attempted Therapeutic Exercises Note * SMT given to rectus capitis posterior major and minor, oblique capitis suprior and inferior, upper traps and middle traps during session as well as rhomboids. presure was kept relatively superficial with only minimal trigger point used. Pt notes relief of headache and tension. Pt was given edcuation to remember to drink properly. Nursing was notified and will con't to asssess t/o the evening. PT Interventions * Gait Training * Therapeutic Excercise * Functional Training * Bed Mobility * Balance Activities * Safety/Precautions * HEP * Pt./Family Education * D/C Needs * Neuro Re-Education PT Progress Note * pt was left supine in bed at this time with his call mccord and his present. He states he feels increasingly relaxed with decreased headache and was hopefull for increased rest as he notes his headaches have been keeping him from sleeping well with throbing at night. Nursing notified at this time. Discharge Recommendations * Home w/services Allergies Coded Allergies: No Known Drug Allergy (Verified Allergy, Unknown, 09/20/17) Vital Signs Vital Signs Date Time Temp Pulse Resp B/P (MAP) Pulse Ox O2 Delivery O2 Flow Rate FiO2 09/25/17 14:50 97.7 61 16 145/76 (99) 98 Room Air Laboratory Data Labs 24H Laboratory Tests 2 09/25/17 05:57: Bedside Glucose (Misc Panel) 112 09/25/17 06:58: Estimated Mean Plasma Glucose 100, Hemoglobin A1c 5.1 Current Medications Current Medications Current Medications Acetaminophen (Tylenol Tab) 650 mg Q6HP PRN PO PAIN OR FEVER Last administered on 09/25/17 13:09; Start 09/20/17 at 14:15; Stop 10/20/17 at 14:14 Amlodipine Besylate (Norvasc) 5 mg DAILY PO Last administered on 09/25/17 08: 23; Start 09/23/17 at 09:00; Stop 10/23/17 at 08:59 Aspirin (Aspirin Chewable) 81 mg DAILY PO Last administered on 09/25/17 08:23 ; Start 09/21/17 at 09:00; Stop 10/21/17 at 08:59 Calcium Carbonate (Tums) 1,000 mg Q4HP PRN PO HEARTBURN Last administered on 20:59; Start 09/20/17 at 15:30; Stop 10/20/17 at 15:29 Diphenhydramine HCl (Benadryl) 25 mg Q6HP PRN PO ITCHING Last administered on 09/24/17 21:31; Start 09/20/17 at 14:15; Stop 10/20/17 at 14:14 Docusate Sodium (Colace) 100 mg BID PO Last administered on 09/25/17 08:23; Start 09/20/17 at 21:00; Stop 10/20/17 at 20:59 Heparin Sodium (Porcine) (Heparin) 5,000 units Q12H SC Last administered on 08:49; Start 09/20/17 at 21:00; Stop 09/24/17 at 10:48; Status DC Home Med (Med Rec Complete!) ASDIRECTED XX ; Start 09/20/17 at 15:00; Stop 09/20/17 at 15:04; Status DC Levetiracetam (Keppra) 500 mg BID PO Last administered on 09/23/17 08:37; Start 09/20/17 at 21:00; Stop 09/23/17 at 20:59; Status DC Menthol/Methyl Salicylate (Bengay Cream) to bilateral temp... QID TOP Last administered on 09/25/17 13:19; Start 09/24/17 at 13:00; Stop 09/28/17 at 23 :55 Oxycodone HCl (Roxicodone, Oxyir) 5 mg Q4HP PRN PO PAIN SCALE 6-10 Last administered on 09/25/17 13:10; Start 09/20/17 at 14:15; Stop 10/02/17 at 23: 55 Senna (Senokot) 2 tab QHS PO Last administered on 09/24/17 21:34; Start 09/20 at 21:00; Stop 10/20/17 at 20:59 KIMBERLY MELENDEZ MD Sep 25, 2017 15:56
[2017-09-25 20:00] VITALS: BP 141/78
[2017-09-25] MEDS: SENNA 8.6 MG TAB (SENOKOT) PO SCH (20:52)
[2017-09-25] MEDS: diphenhydrAMINE 25 MG CAP PO PRN (20:53)
[2017-09-26] MEDS: oxyCODONE 5MG TAB PO PRN ×3 (03:44→20:16)
[2017-09-26 06:00] VITALS: BP 126/78
[2017-09-26] MEDS: DOCUSATE SODIUM 100 MG CAP PO SCH ×2 (08:15→20:15)
[2017-09-26] MEDS: ANALGESIC BALM CRM 120 GM TOP SCH ×4 (08:15→20:16)
[2017-09-26] MEDS: amLODIPine 5 MG TAB PO SCH (08:15)
[2017-09-26] MEDS: ASPIRIN 81 MG CHEW TABLET PO SCH (08:15)
[2017-09-26 14:00] VITALS: BP 128/54
[2017-09-26] MEDS ORDERED: OXYC-517 PO (14:05)
[2017-09-26] MEDS ORDERED: AMLO5TAB2 PO (14:05)
--- NOTE | 2017-09-26 16:09 | IPNPDOC ---
PM&R Progress Note Autom[employer]onder Progress Note DATE OF SERVICE: 09/26/17 DATE OF ADMISSION: Sep 20, 2017 at 13:39 INPATIENT REHABILITATION ADMISSION DAY: #7 SUBJECTIVE: Rehabilitation of intracerebral hemorrhage with subdural hematoma and subarachnoid hemorrhage with subdural hematoma on the left from dissection of the internal carotid artery from fall and subarachnoid hemorrhage and bifrontal, biparietal lobes from fall from 8-feet tall ladder with approximately 15 seconds of nonresponsiveness and then coming to oriented status. Patient was air lifted from the fall on 09/15/2017 to [facility], assessed, and found to have these bleeds. His main deficits, however, have remained balance and hearing, worse on the left than the right. Patient was assessed in therapy and found to have been doing fairly well as far as strength goes but limited in activities of daily living (ADLs) and mobility because of the balance deficits from the bleeds here. Patient has completed his course of Keppra with no seizures noted. He did have some decrease in attention concentration on 09/21/17 in the morning which led to the CT and MRI exams that day. Patient notes having frontal headache otherwise no significant complaints today. ALLERGIES: See Below MEDICATIONS: Reviewed, see below. OBJECTIVE: VITAL SIGNS: Please see below. PHYSICAL EXAMINATION: GENERAL: Tall somewhat over weight late middle-age white male who looks slightly younger than a 66 years of age. Patient is alert and well oriented with speech that is clear and appropriate. HEENT: Normocephalic/atraumatic with some tender points in the temporalis muscles bilaterally and in the frontalis on the left. CARDIOVASCULAR: Regular rate and rhythm with normal S1-S2 without S3-S4 murmurs or rubs. 2/4 bilateral radial pulses. LUNGS: All greenwood clear to auscultation. ABDOMEN: Benign with normal bowel sounds in all quadrants. NEUROLOGICAL: Patient is alert and oriented to person, place, time and situation. Affect is pleasant and cooperative which is a little bit of anxiousness. Good strength in bilateral upper and lower extremities. SKIN: Grossly intact. LABORATORY DATA: Reviewed. Please see below. MICROBIOLOGY: Please see below. IMAGING: No new imaging today. DVT prophylaxis ordered?: Aspirin. In light of the amount of walking patient is currently able to do and the nature of his multiple intercerebral hemorrhages, I have discontinued the heparin 5000 units subcutaneous every 12 hours. ASSESSMENT AND PLAN: 1. Rehabilitation of intercerebral hemorrhage with bilateral inferior frontal lobe contusions and bilateral temporal lobe contusions and left internal carotid artery aneurysm: Patient is doing exceptionally well in physical therapy , occupational therapy and has been evaluated by speech-language pathology. His strength and endurance are good but the bojorquez thing at this time is balance and coordination that limit him from being able be independent at home. Overall patient is doing very well making rapid progress in learning adaptive mobility and ADLs in spite of his hearing and balance deficits. Anticipated date of discharge is 09/27/17. Please see therapy notes below. 2. Deafness: Patient seems to be adapting adjusting fairly well to this. At discharge he will follow-up with ENT and should be directed to audiology. 3. Elevated fasting blood sugar this morning: Patient with blood sugar of 101 this morning but no diabetes history and HgbA1c of 5.1. If FBS remains low, I will stop fingerstick BS checks. I will d/c FBS and AC checks. TIME SPENT: Chart Review, examination and documentation require greater than 25 minutes. Patient: Stef Mora : 1950 Age/Sex: 66/M Unit#: [id number] Room/Bed: M4148/01 User: Lorie Henriquez OT OT Date: 09/26/17 08:09 Type: OT Progress Time In * 07:00 Time Out * 08:05 OT Treatment Time-Minutes * 65 mins Type of Therapy Provided * Individual Precautions * Fall Unit * Acute Inpatient Rehab Pain Start of Session * 0 Pain End of Session * 0 Pain Comment * No formal c/o pain. Pt reports BESS is better when he is OOB more often throughout the day. Subjective * Pt sitting in chair at bedside upon OT arrival, agreeable to tx. Cognition * Within Normal Limits Cognition Comments * WNL Bed Mobility Notes * OOB throughout tx. Sit to Stand * Modified Independent Stand to Sit * Modified Independent Bed to Chair * Modified Independent Chair to Bed * Modified Independent Toilet/Commode * Modified Independent Shower/Tub * Modified Independent Functional Transfer Notes: * Pt completed sit<>stand with mod I. Pt ambulated to/from gym using SPC with mod I. Shower transfer with use of SPC with mod I. Bathing * Modified Independent Dressing-Upper Body * Independent Dressing-Lower Body * Modified Independent Grooming * Independent Toileting * Modified Independent Eating * Independent ADL Training Note * Pt ambulated in room to gather clothing, then to bathroom and completed shower transfer with mod I using SPC. Pt completed bathing while seated on shower chair with mod I. UB dressing- independently. LB dressing- pt able to thread BLE into pants and B socks/shoes mod I. Pt then ambulated to sink and completed grooming independently while standing. A. Eating (include only those with PO intake): * 06.Independent Eating Comments: * See ADL note. B. Oral Hygiene (includes gums in edentulous pts): * 06.Independent Oral Hygiene Comments: * See ADL note. C. Toileting Hygiene (not transfers): * 06.Independent Toileting Hygiene Comments: * See ADL note. E. Shower/Bathe Self (not transfers, can be sponge bath): * 06.Independent Shower/Bathe Self Comments: * See ADL note F. Upper Body Dressing (includes bra, not hospital gown): * 06.Independent Upper Body Dressing Comments: * See ADL note. G. Lower Body Dressing (includes briefs and knee braces): * 06.Independent Lower Body Dressing Comments: * See ADL note H. Putting on/taking off footwear (includes TEDS and AFO): * 06.Independent Putting on/taking off footwear Comments: * See ADL note. Sit-Static * G Sit-Dynamic * G Stand-Static * G Stand-Dynamic * G Balance Training Note * balance oberserved during ambulation with RW. No LOB noted t/o OT Intervention Note * See ADL note above. Following ADLs, pt ambulated to gym using SPC with mod I. Pt completed dynamic standing balance activity with ball toss/catch, as well as dribbling ball while alternating BUE and walking the length of the gym, ~20', mod I. Pt completed task x3 sets with short standing rest break between sets. Pt ambulated back to room using SPC with mod I and retunred to chair at bedside. All needs met, call light in reach, breakfast just arrived. OT Goal Note * Pt has met all goals. Discharge Recommendations * Home Safe for discharge at this time * Yes Patient: Stef Mora : 1950 Age/Sex: 66/M Unit#: [id number] Room/Bed: M4148/01 User: Lorie Henriquez OT OT Date: 09/26/17 15:26 Type: OT Progress Time In * 13:05 Time Out * 13:30 OT Treatment Time-Minutes * 25 mins Type of Therapy Provided * Individual Precautions * Fall Unit * Acute Inpatient Rehab Pain Comment * No c/o pain. Subjective * Pt sitting in chair upon OT arrival, agreeable to tx. Cognition * Within Normal Limits Cognition Comments * [place] in L ear since accident. Sit to Stand * Modified Independent Stand to Sit * Modified Independent Functional Transfer Notes: * Mod I for all functional transfers this date. Pt ambulated to gym using SPC with mod I. Sit-Static * G Sit-Dynamic * G Stand-Static * G Stand-Dynamic * G Balance Training Note * Mod I using SPC for all ambulation and transfers. OT Intervention Note * Pt ambulated to gym mod I using SPC. Pt completed BUE ergometer x8:00 with moderate resistance to increase strength and endurance for ADL routines. Pt edu re: HEP for BUE ther ex. Pt completed BUE HEP using 2# through all planes x10-15 reps to increase strength for functional transfers. Pt had no questions regarding HEP and completed independently. Pt ambulated back to room, mod I using SPC, and returned to chair. All needs met, call light in reach. Pt has room privilages at this time. Discharge Recommendations * Home Safe for discharge at this time * Yes Patient: Stef Mora Zaheer : 1950 Age/Sex: 66/M Unit#: [id number] Room/Bed: [place] [address] User: Brielle Leigh PT PT Date: 09/25/17 16:21 Type: PT Progress Note Time In * 09:01 Time Out * 10:01 PT Treatment Time-Minutes * 60 mins Type of Therapy Provided * Individual Precautions * Fall Unit * Acute Inpatient Rehab Pain Comment * Pt noted to have slight headache today at this time does not rate and states that it has been better than previous days. He also states that he has slept better. Subjective * Pt was seated EOB upon entering the room and was willing to complete all that is asked of him. He states he slept better during the night and was feeling well. Cognition * Within Normal Limits Cognition Comments * WNL Supine to Sit * Modified Independant Sit to Supine * Modified Independent Rolling * Modified Independent Bed Mobility Notes * Mod I with HOB slightly elevated. Sit to Stand * Modified Independent Stand to Sit * Modified Independent Bed to Chair * Modified Independent Chair to Bed * Modified Independent Toilet/Commode * Not Tested Transfer Training Notes * mod I with transfers using RW. pt is SBA to CGA with cane use or without AD. Sit-Static * G Sit-Dynamic * G Stand-Static * G Stand-Dynamic * G Balance Training Note * balance oberserved during ambulation with RW. No LOB noted t/o specific balance training tested today at this time. forward ambulation on a line 15' x 4 without AD, some sway noted and pt was able to complete stepping strategy as needed to correct balance. CGA given however pt able to correct without assitance. forward tandem walking on a line 15' x 4 without AD, increased sway noted and LOBx 3 however was able to complete stepping strategy with arms in high guard at times to assist balance. backward tandem walking on line 15' x 4 without AD. Moderate sway noted with this and LOB x 3 however was able to complete stepping strategy with arms in high gaurd. pt able to correct all LOB during session using proper strategies and techniques no needing assist from this conventional mortgage underwriter. Ambulation Distance * 250 Feet Ambulation Level of Assist * Modified Independent Assistive Device Used * Cane * Gait Belt Other Assistive Device Used * pt ambulates with RW Mod I. He then complete ambulation without AD today 180 ft back to his room with no AD. CGA given without AD. Gait Training Note * pt was able to complete ambulation safely with RW and was willing to return home with RW use at this time. A. Roll Left and Right: * 06.Independent B. Sit to Lying: * 06.Independent C. Lying to Sitting on Side of Bed: * 06.Independent D. Sit to Stand: * 06.Independent E. Chair/Ueh-nc-Ejqlf Transfer: * 06.Independent F. Toilet Transfer: * 88.Not Attempted G. Car Transfer: * 88.Not Attempted H. Does the patient walk?: * 2. Yes I. Walk 10 Feet: * 06.Independent J. Walk 50' with Two Turns: * 06.Independent K. Walk 150 Feet: * 06.Independent L. Walking 10' on uneven surfaces: * 06.Independent M. 1 Step (curb): * 88.Not Attempted N. 4 Steps (with or without railing): * 88.Not Attempted O. 12 Steps (with or without railing): * 88.Not Attempted P. Picking up Object from the Floor (from a standing): * 06.Independent Q. Does the patient use a w/c (other than just transport): * 0. No R. Wheel 50' with 2 Turns(seated in w/c): * 88.Not Attempted S. Wheel 150' (seated in w/c): * 88.Not Attempted Lower Extremity Exercised * Bilateral Standing Exercises * Other Other Standing Exercises * see balance noted for activity completed. PT Interventions * Gait Training * Functional Training * Bed Mobility * Balance Activities * Safety/Precautions * Pt./Family Education * D/C Needs * Neuro Re-Education PT Progress Note * pt was left supine in bed at this time with his call [facility] notified at this time. PT Goal Expiration Date * Oct 06, 2017 Discharge Recommendations * Home w/services Patient: Stef Mora : 1950 Age/Sex: 66/M Unit#: [id number] Room/Bed: M4148/01 User: Briellehalima Leigh PT PT Date: 09/25/17 16:35 Type: PT Progress Note Time In * 13:00 Time Out * 13:30 PT Treatment Time-Minutes * 30 mins Type of Therapy Provided * Individual Precautions * Fall Unit * Acute Inpatient Rehab Pain Start of Session * 0 Pain End of Session * 0 Pain Comment * pt notes that he had an increase in his headach. Nursing given pain medicaiton at start of the sessions. Subjective * Pt was in good spirits and willing to participate in all that was asked of him at this time. Cognition * Within Normal Limits Cognition Comments * WNL Supine to Sit * Modified Independant Sit to Supine * Modified Independent Rolling * Modified Independent Bed Mobility Notes * Mod I with HOB slightly elevated. Sit to Stand * Modified Independent Stand to Sit * Modified Independent Bed to Chair * Modified Independent Chair to Bed * Modified Independent Toilet/Commode * Not Tested Transfer Training Notes * mod I with transfers using RW. pt is SBA to CGA with cane use or without AD. Sit-Static * G Sit-Dynamic * G Stand-Static * G Stand-Dynamic * G Balance Training Note * balance oberserved during ambulation with RW. No LOB noted t/o Ambulation Distance * 15 Feet Ambulation Level of Assist * Independent Assistive Device Used * Gait Belt Gait Training Note * pt con't to be mod I with RW. but SBA this PM with no AD used. Stair Training Note * reciprocating foot pattern up and down Left HR and walker used. no safety concerns noted at this time. A. Roll Left and Right: * 06.Independent B. Sit to Lying: * 06.Independent C. Lying to Sitting on Side of Bed: * 06.Independent D. Sit to Stand: * 06.Independent E. Chair/Idd-df-Eruze Transfer: * 06.Independent F. Toilet Transfer: * 88.Not Attempted G. Car Transfer: * 88.Not Attempted H. Does the patient walk?: * 2. Yes I. Walk 10 Feet: * 06.Independent K. Walk 150 Feet: * 06.Independent L. Walking 10' on uneven surfaces: * 06.Independent M. 1 Step (curb): * 88.Not Attempted N. 4 Steps (with or without railing): * 88.Not Attempted O. 12 Steps (with or without railing): * 88.Not Attempted P. Picking up Object from the Floor (from a standing): * 06.Independent Q. Does the patient use a w/c (other than just transport): * 0. No R. Wheel 50' with 2 Turns(seated in w/c): * 88.Not Attempted S. Wheel 150' (seated in w/c): * 88.Not Attempted Sitting Exercises * Other Other Sitting Exercises * chin tucks 10 x Therapeutic Exercises Note * SMT given to rectus capitis posterior major and minor, oblique capitis suprior and inferior, upper traps and middle traps during session as well as rhomboids. presure was kept relatively superficial with only minimal trigger point used. Pt notes relief of headache and tension. Pt was given edcuation to remember to drink properly. Nursing was notified and will con't to asssess t/o the evening. PT Interventions * Gait Training * Functional Training * Bed Mobility * Balance Activities * Safety/Precautions * Pt./Family Education * D/C Needs * Neuro Re-Education PT Progress Note * Pt was given education of stretching to complete for lower, mid and upper traps. He was also given exercises to strengten neck musculature. He was also given education about making an increasingly ergonomic work station at his home. Hand outs given for all education. STM completed with con't good results. Nursing notified and pt left supine in bed after session to get some rest. Discharge Recommendations * Home w/services Allergies Coded Allergies: No Known Drug Allergy (Verified Allergy, Unknown, 09/20/17) Vital Signs Vital Signs Date Time Temp Pulse Resp B/P (MAP) Pulse Ox O2 Delivery O2 Flow Rate FiO2 09/26/17 14:00 98.3 59 18 128/54 (78) 99 Room Air Laboratory Data Labs 24H Laboratory Tests 2 09/26/17 06:49: Bedside Glucose (Misc Panel) 101 Current Medications Current Medications Current Medications Acetaminophen (Tylenol Tab) 650 mg Q6HP PRN PO PAIN OR FEVER Last administered on 09/25/17 20:52; Start 09/20/17 at 14:15; Stop 10/20/17 at 14:14 Amlodipine Besylate (Norvasc) 5 mg DAILY PO Last administered on 09/26/17 08: 15; Start 09/23/17 at 09:00; Stop 10/23/17 at 08:59 Aspirin (Aspirin Chewable) 81 mg DAILY PO Last administered on 09/26/17 08:15 ; Start 09/21/17 at 09:00; Stop 10/21/17 at 08:59 Calcium Carbonate (Tums) 1,000 mg Q4HP PRN PO HEARTBURN Last administered on 20:59; Start 09/20/17 at 15:30; Stop 10/20/17 at 15:29 Diphenhydramine HCl (Benadryl) 25 mg Q6HP PRN PO ITCHING Last administered on 09/25/17 20:53; Start 09/20/17 at 14:15; Stop 10/20/17 at 14:14 Docusate Sodium (Colace) 100 mg BID PO Last administered on 09/26/17 08:15; Start 09/20/17 at 21:00; Stop 10/20/17 at 20:59 Heparin Sodium (Porcine) (Heparin) 5,000 units Q12H SC Last administered on 08:49; Start 09/20/17 at 21:00; Stop 09/24/17 at 10:48; Status DC Home Med (Med Rec Complete!) ASDIRECTED XX ; Start 09/20/17 at 15:00; Stop 09/20/17 at 15:04; Status DC Levetiracetam (Keppra) 500 mg BID PO Last administered on 09/23/17 08:37; Start 09/20/17 at 21:00; Stop 09/23/17 at 20:59; Status DC Menthol/Methyl Salicylate (Bengay Cream) to bilateral temp... QID TOP Last administered on 09/25/17 20:54; Start 09/24/17 at 13:00; Stop 09/28/17 at 23 :55 Oxycodone HCl (Roxicodone, Oxyir) 5 mg Q4HP PRN PO PAIN SCALE 6-10 Last administered on 09/26/17 10:08; Start 09/20/17 at 14:15; Stop 10/02/17 at 23: 55 Senna (Senokot) 2 tab QHS PO Last administered on 09/25/17 20:52; Start 09/20 at 21:00; Stop 10/20/17 at 20:59 KIMBERLY MELENDEZ MD Sep 26, 2017 16:09
[2017-09-26 20:00] VITALS: BP 140/83
[2017-09-26] MEDS: ACETAMINOPHEN TAB 650MG DOSE (2X325MG) PO PRN (20:15)
[2017-09-26] MEDS: SENNA 8.6 MG TAB (SENOKOT) PO SCH (20:15)
[2017-09-26] MEDS: diphenhydrAMINE 25 MG CAP PO PRN (20:15)
[2017-09-27] MEDS: oxyCODONE 5MG TAB PO PRN (05:59)
[2017-09-27] MEDS: ACETAMINOPHEN TAB 650MG DOSE (2X325MG) PO PRN (05:59)
[2017-09-27 06:00] VITALS: BP 134/79
[2017-09-27 08:40] VITALS: BP 134/79
[2017-09-27] MEDS: ASPIRIN 81 MG CHEW TABLET PO SCH (08:40)
[2017-09-27] MEDS: ANALGESIC BALM CRM 120 GM TOP SCH (08:40)
[2017-09-27] MEDS: amLODIPine 5 MG TAB PO SCH (08:40)
[2017-09-27] MEDS: DOCUSATE SODIUM 100 MG CAP PO SCH (08:40)
--- NOTE | 2017-09-27 16:13 | PMRDS ---
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 HISTORY: Patient is a 66-year-old white male who on 09/15/2017, was up on a ladder and fell and was unresponsive for approximately 15 seconds and air lifted to the [facility] and found to have the bleeds described above. Patient was followed and started on antiseizure treatments, but did not have any seizures. His other medical problems include arthritis and idiopathic peripheral neuropathy with bilateral foot numbness. He is status post arthroscopy on the right shoulder for impingement in 2000 and laparoscopic cholecystectomy in 2001. Patient was stabilized and found to be able to participate in therapy and was transferred here for neurorehabilitation on 09/20/2017. Since arriving, patient did have some confusion on the morning of 09/21/2017, and seemed off according to his , and the medicine service covering ordered CT of the head and MRA and MRI of the brain. These showed a 7 mm cavernous and supraclinoid left internal carotid artery aneurysm and 2 mm cavernous left internal carotid artery aneurysm, small hemorrhagic contusion in inferior frontal lobes and bilateral temporal lobes, and small 2 and 3 mm chronic subdural fluid collections overlying the right and left hemispheres, respectively. No treatment was initiated based on these findings and patient's cognition improved during the course of the morning and has been stable since. DIAGNOSTIC AND LABORATORY DATA: Patient with normal white count, hemoglobin and hematocrit, and BMP, except for an elevated fasting blood sugar, which stabilized, and hemoglobin A1c was normal at 5.1 during the admission. HOSPITAL COURSE: Patient admitted on 09/20/2017, and evaluated by physical, occupational, and speech and language pathology. He participated in these programs and was initially found to be standby assist in transfers and dressing with good minus balance, improving to modified independence in his transfers with good balance and able to ambulate 250 feet with standby assistance and 20 stairs, to becoming independent in transfers per physical therapy (PT) and ambulating greater than 600 feet and still able to do 20 stairs. Speech evaluation showed patient to be functioning within social norms for language communication with minimal oral control problems, but able to handle regular diet and thin liquids, and speech was stopped at that point. Patient, therefore, is being discharged to home. COMPLICATIONS: None. DISCHARGE MEDICATIONS: - amlodipine 5 mg daily, may be adjusted by his primary care - aspirin 81 mg daily for anticoagulation - diphenhydramine 25 mg nightly as needed for insomnia - Colace 100 mg twice a day for bowel management - Restasis 0.05% in the left eye twice a day - Senna 8.6 mg capsules two capsules every evening for bowel program - Tylenol 325 mg every 4 hours as needed for pain - oxycodone 5 mg every 4 hours as needed for moderate to severe pain, principally headaches, #20 tablets issued Patient has been discontinued from heparin. He completed his one week prophylactic course of Keppra. DISCHARGE PLAN: Patient to followup with primary care, Dr. Blas Duvall, 10/01/2017, at 0930 hours, Dr. Dayami Lane in 5 weeks, to call for appointment at [phone], referral as previously requested for [facility] for audiogram and ENT assessment to be done within 2 weeks. Patient will use walker for ambulation and he is on a regular diet with thin liquids. Time spent on discharge summary: Greater than 35 minutes.
== END 2017-09-27 12:39 | disposition home health service (06) | DRG 950 ==
LOC: M PM&R 13:39
PROVIDERS: ADMIT Physical Medicine & Rehabilitation; ATTEND Physical Medicine & Rehabilitation
DX: S06.6X1D Traumatic subarachnoid hemorrhage with loss of consciousness of 30 minutes or less, subsequent encounter (principal); M19.90 Unspecified osteoarthritis, unspecified site; R41.0 Disorientation, unspecified; G60.9 Hereditary and idiopathic neuropathy, unspecified; F07.81 Postconcussional syndrome; W11.XXXD Fall on and from ladder, subsequent encounter; Y92.017 Garden or yard in single-family (private) house as the place of occurrence of the external cause; E66.3 Overweight; Y93.H9 Activity, other involving exterior property and land maintenance, building and construction; Y99.9 Unspecified external cause status; H90.5 Unspecified sensorineural hearing loss; R26.89 Other abnormalities of gait and mobility; Z90.49 Acquired absence of other specified parts of digestive tract; Z79.82 Long term (current) use of aspirin; Z79.899 Other long term (current) drug therapy; Z68.29 Body mass index [BMI] 29.0-29.9, adult